=== PATIENT | male | born 1945 | race Caucasian/White ===

== ENCOUNTER 2019-02-07 06:47 | Inpatient (IN) | payer MEDICARE, MEDICAID ==
[~2019-02-07] VITALS: Ht 185.4 cm; Wt 101.2 kg
--- NOTE | 2019-02-07 07:01 | NUR ---
73 Y/O MALE PRESENTS TO ED WITH C/O WEAKNESS. PER REPORT PT WAS FOUND DOWN AND ACTING ABNORMAL. 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 PT WAS FOUND DOWN BY DEBURRER. PT WAS LAST NORMAL AT 10 PM LAST NIGHT. PER EMS CAREGIVE STATED HE IS ABLE TO HAVE NORMAL CONVERSATIONS. PER PT "I FELL LAST NIGHT. I FEEL LIKE CRAP." PT HAS OVBIOUS FACIAL TREMORS. 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 PT PLACED ON CON TPULSE OX, NIBP, APPRENTICE JOCKEY. NO ACUTE DISTRESS NOTED. PT ABLE TO USE RIGHT HAND WITH NO COMPLICATIONS.
--- NOTE | 2019-02-07 07:09 | NUR ---
PT STATES "I DON'T HAVE PAIN."
--- NOTE | 2019-02-07 07:24 | NUR ---
PT TO IMAGING AT THIS TIME
[2019-02-07] MEDS ORDERED: SODIUM CHLORIDE FLUSH 10ML SYR IVF ONE (07:30)
--- NOTE | 2019-02-07 07:40 | NUR ---
PT BACK FROM IMAGING.
[2019-02-07 08:19] LABS: BASOPHILS # (AUTO) 0.03 x10^3/uL (0-0.1); BASOPHILS % (AUTO) 0 % (0-1); EOSINOPHILS # (AUTO) 0.02 x10^3/uL (0-0.4); EOSINOPHILS % (AUTO) 0 % (1-7); LYMPHOCYTES # (AUTO) 0.48 x10^3/uL (1-3.4); LYMPHOCYTES % (AUTO) 5 % (22-44); MD NO; MEAN CORPUSCULAR HEMOGLOBIN 27.9 pg (27.5-34.5); MEAN CORPUSCULAR HGB CONC 32.9 g/dL (33.2-36.2); MEAN CORPUSCULAR VOLUME 84.6 fL (81-97); MEAN PLATELET VOLUME 8.2 fL (7.4-10.4); MONOCYTES # (AUTO) 0.75 x10^3/uL (0.2-0.8); MONOCYTES % (AUTO) 7 % (2-9); NEUTROPHILS % (AUTO) 88 % (42-75); PLATELET COUNT 156 x10^3/uL (130-400); RED BLOOD COUNT 4.92 x10^6/uL (4.38-5.82); RED CELL DISTRIBUTION WIDTH 15.3 % (9.4-14.8)
[2019-02-07 08:23] LABS: ALANINE AMINOTRANSFERASE 23 U/L (12-78); ALBUMIN 3.6 g/dL (3.4-5.0); ANION GAP 5 mmol/L (5-15); CALCIUM 8.8 mg/dL (8.5-10.1); CHLORIDE 108 mmol/L (98-107); CREATININE 1.02 mg/dL (0.7-1.3)
[2019-02-07 08:27] LABS: ALKALINE PHOSPHATASE 110 U/L (45-117); BILIRUBIN,TOTAL 0.7 mg/dL (0.2-1.0); CREATINE KINASE, TOTAL 127 U/L (39-308); TOTAL PROTEIN 7.4 g/dL (6.4-8.2)
[2019-02-07 08:36] LABS: INTERNATIONAL NORMALIZED RATIO 1.23 (0.93-1.1); PROTHROMBIN TIME 12.8 Seconds (9.6-11.5)
--- NOTE | 2019-02-07 08:41 | NUR ---
PT RESTING ON GURNEY. FRIENDS BEDSIDE. NO ACUTE DISTRESS NOTED. NO NEEDS REQUESTED AT THIS TIME.
[2019-02-07 08:56] LABS: MICROSCOPIC INDICATED
--- NOTE | 2019-02-07 09:03 | NUR ---
REPORT STEPHANIE RN
[2019-02-07] MEDS ORDERED: ASPIRIN (09:05)
[2019-02-07] MEDS ORDERED: GLIPIZIDE (09:05)
[2019-02-07] MEDS ORDERED: LISINOPRIL (09:05)
[2019-02-07] MEDS ORDERED: METFORMIN (09:05)
[2019-02-07] MEDS ORDERED: ATORVASTATIN (09:05)
[2019-02-07] MEDS ORDERED: SAXAGLIPTIN (09:05)
--- NOTE | 2019-02-07 09:05 | NUR ---
PER CAREGIVER "I DON'T KNOW THE DOSAGES. THE MEDICS DIDN'T ASK FOR THEM EITHER. HE DOES TAKE ASPIRIN NOW."
--- NOTE | 2019-02-07 09:06 | NUR ---
PER CAREGIVER "HE FELL AROUND 0600. I CALLED THE AMBULANCE IMMEDIATELY." PT RESTING ON GURNEY. NO TREMORS OR CHATTERING OF LEFT FACE NOTED. PT LAUGHING WITH FRIENDS BEDSIDE. NO ACUTE DISTRESS NOTED
--- NOTE | 2019-02-07 09:19 | NUR ---
ASSUMED CARE. LEFT CALF AND THIGH CRAMPS DEVELOPING. ATTEMPTING TO RELIEVE WITH RUBBING TO NO AVAIL. CARETAKERS AT BEDSIDE. AWARE OF PLAN OF CARE. ASSESSMENT AND NEURO EXAM COMPLETED.
[2019-02-07 09:23] LABS: CULTURE INDICATED? NO
--- NOTE | 2019-02-07 09:59 | NUR ---
REPORT TO JEFFREY OSULLIVAN. PT TO BE TRANSPORTED TO ICU WITH TENZIN AND RN IN [facility] ON MONITOR.
[2019-02-07 10:27] VITALS: BP 123/64
[2019-02-07] MEDS ORDERED: THROMBIN 20,000 UNIT VIAL TP ONE (10:42)
[2019-02-07] MEDS ORDERED: BACITRACIN 50,000 UNIT ONE (10:42)
[2019-02-07] MEDS ORDERED: BUPIVACAINE/EPI 0.5% 1:200K ONE (10:42)
[2019-02-07] MEDS ORDERED: MICROFIBRILLAR COLLAGEN 1 GM TP ONE (10:45)
[2019-02-07] MEDS ORDERED: GLUCAGON 1 MG IM PRN (11:30)
[2019-02-07] MEDS ORDERED: DEXTROSE 50%, 50ML SYRINGE IVPush PRN (11:30)
[2019-02-07] MEDS ORDERED: DEXTROSE 4 GM TAB.CHEW PO PRN (11:30)
[2019-02-07] MEDS ORDERED: INSULIN SINGLE DOSE, ER SQ-INSULIN ONE (12:08)
[2019-02-07] MEDS ORDERED: PROPOFOL 10 MG/ML, 20ML ONE ×2 (13:01)
[2019-02-07] MEDS ORDERED: ROCURONIUM 10MG/ML,5ML ONE (13:02)
[2019-02-07] MEDS ORDERED: CEFAZOLIN 1,000 MG ONE (13:02)
[2019-02-07] MEDS ORDERED: EPHEDRINE 50 MG/ML, 1ML ONE (13:02)
[2019-02-07] MEDS ORDERED: GLYCOPYRROLATE 0.4 MG/2 ML, 2ML ONE (13:02)
[2019-02-07] MEDS ORDERED: SUGAMMADEX 200 MG/2 ML IVPush ONE ×2 (13:40)
[2019-02-07] MEDS ORDERED: HYDROmorphone 2 MG/ML, 1ML IVPush PRN (14:00)
[2019-02-07] MEDS ORDERED: MORPHINE SULFATE 4 MG/ML, 1ML IVPush PRN (14:00)
[2019-02-07] MEDS ORDERED: FENTANYL PF 100 MCG/2ML IV PRN (14:00)
[2019-02-07] MEDS ORDERED: MEPERIDINE/PF 25MG/0.5ML IVPush PRN (14:00)
[2019-02-07] MEDS ORDERED: FENTANYL PF 100 MCG/2ML ONE (14:55)
[2019-02-07] MEDS ORDERED: CEFAZOLIN 1,000 MG IM SCH (15:30)
[2019-02-07] MEDS ORDERED: HYDROmorphone 2 MG/ML, 1ML ONE (15:33)
[2019-02-07] MEDS ORDERED: BISACODYL 10 MG SUPP PR PRN (16:00)
[2019-02-07] MEDS: POTASSIUM CHLORIDE 40 MEQ in SODIUM CHLORIDE 0.9% 1,000 ML IV SCH (17:13)
[2019-02-07] MEDS: INSULIN LISPRO 100 UNITS/ML, PEN SQ-INSULIN SCH ×2 (17:13→21:13)
[2019-02-07] MEDS: OXYcodone/APAP 5/325MG TABLET PO PRN ×2 (17:14→19:19)
[2019-02-07] MEDS ORDERED: ONDANSETRON 2MG/ML, 2ML IVPush PRN (20:30)
[2019-02-07] MEDS: SODIUM CHLORIDE FLUSH 10ML SYR IVF SCH (21:03)
[2019-02-07] MEDS: CEFAZOLIN PMX 2GM/50ML 50 ML IVPB SCH (21:04)
[2019-02-07] MEDS: morphine SULFATE 10 MG/ML, 1ML IV PRN (23:19)
[2019-02-08] MEDS: morphine SULFATE 10 MG/ML, 1ML IV PRN ×2 (00:57→08:26)
[2019-02-08 04:00] VITALS: BP 106/46
[2019-02-08] MEDS: POTASSIUM CHLORIDE 40 MEQ in SODIUM CHLORIDE 0.9% 1,000 ML IV SCH (04:34)
[2019-02-08] MEDS: CEFAZOLIN PMX 2GM/50ML 50 ML IVPB SCH ×3 (04:35→20:34)
[2019-02-08 04:47] LABS: ANION GAP 8 mmol/L (5-15); CALCIUM 7.8 mg/dL (8.5-10.1); CHLORIDE 107 mmol/L (98-107)
[2019-02-08 04:48] LABS: CREATININE 0.74 mg/dL (0.7-1.3)
[2019-02-08] MEDS ORDERED: MORPHINE SULFATE 4 MG/ML, 1ML ONE (08:14)
[2019-02-08] MEDS: SENNA/DOCUSATE TABLET PO SCH (09:00)
[2019-02-08] MEDS: INSULIN LISPRO 100 UNITS/ML, PEN SQ-INSULIN SCH ×3 (11:00→20:34)
[2019-02-08] MEDS: SODIUM CHLORIDE FLUSH 10ML SYR IVF SCH ×2 (12:35→20:33)
[2019-02-08] MEDS ORDERED: LEVETIRACETAM 1,000 MG in SODIUM CHLORIDE 0.9% 100 ML IV ONE (13:30)
[2019-02-08] MEDS: SODIUM CHLORIDE 3% 500 ML IV SCH (13:30)
[2019-02-08 20:25] LABS: ANION GAP 7 mmol/L (5-15); CALCIUM 7.9 mg/dL (8.5-10.1); CHLORIDE 109 mmol/L (98-107)
[2019-02-08] MEDS: SODIUM CHLORIDE 0.9% 1,000 ML IV SCH (20:33)
[2019-02-08] MEDS: MORPHINE SULFATE 4 MG/ML, 1ML IV PRN (20:34)
[2019-02-08] MEDS ORDERED: HYDROmorphone/PF 4 MG/ML, 1ML IM PRN (21:00)
[2019-02-08] MEDS: LEVETIRACETAM 500 MG in SODIUM CHLORIDE 0.9% 100 ML IV SCH (22:15)
[2019-02-08] MEDS: OXYcodone/APAP 5/325MG TABLET PO PRN (22:15)
[2019-02-09 02:15] LABS: ANION GAP 5 mmol/L (5-15); CHLORIDE 108 mmol/L (98-107); CREATININE 0.75 mg/dL (0.7-1.3)
[2019-02-09] MEDS: OXYcodone/APAP 5/325MG TABLET PO PRN (05:11)
[2019-02-09] MEDS: CEFAZOLIN PMX 2GM/50ML 50 ML IVPB SCH ×3 (05:12→21:36)
[2019-02-09] MEDS: SODIUM CHLORIDE 0.9% 1,000 ML IV SCH ×2 (05:21→17:00)
[2019-02-09] MEDS: INSULIN LISPRO 100 UNITS/ML, PEN SQ-INSULIN SCH ×4 (07:00→21:39)
[2019-02-09] MEDS: SODIUM CHLORIDE 3% 500 ML IV SCH (08:30)
[2019-02-09 08:34] LABS: BASOPHILS # (AUTO) 0.01 x10^3/uL (0-0.1); BASOPHILS % (AUTO) 0 % (0-1); EOSINOPHILS # (AUTO) 0.01 x10^3/uL (0-0.4); EOSINOPHILS % (AUTO) 0 % (1-7); LYMPHOCYTES # (AUTO) 0.59 x10^3/uL (1-3.4); LYMPHOCYTES % (AUTO) 8 % (22-44); MD NO; MEAN CORPUSCULAR HEMOGLOBIN 27.8 pg (27.5-34.5); MEAN CORPUSCULAR HGB CONC 33.3 g/dL (33.2-36.2); MEAN CORPUSCULAR VOLUME 83.4 fL (81-97); MEAN PLATELET VOLUME 7.8 fL (7.4-10.4); MONOCYTES % (AUTO) 9 % (2-9); NEUTROPHILS # (AUTO) 6.47 x10^3/uL (1.8-6.8); NEUTROPHILS % (AUTO) 83 % (42-75); PLATELET COUNT 127 x10^3/uL (130-400); RED BLOOD COUNT 4.09 x10^6/uL (4.38-5.82); RED CELL DISTRIBUTION WIDTH 14.8 % (9.4-14.8)
[2019-02-09 08:40] LABS: ANION GAP 6 mmol/L (5-15); CALCIUM 7.7 mg/dL (8.5-10.1); CHLORIDE 107 mmol/L (98-107)
[2019-02-09 08:41] LABS: CREATININE 0.64 mg/dL (0.7-1.3)
[2019-02-09] MEDS: SENNA/DOCUSATE TABLET PO SCH (09:00)
[2019-02-09] MEDS: LEVETIRACETAM 500 MG in SODIUM CHLORIDE 0.9% 100 ML IV SCH (09:54)
[2019-02-09] MEDS: SODIUM CHLORIDE FLUSH 10ML SYR IVF SCH ×2 (09:54→21:00)
[2019-02-09] MEDS: MORPHINE SULFATE 4 MG/ML, 1ML IV PRN (12:05)
[2019-02-09 14:58] LABS: ANION GAP 5 mmol/L (5-15); CALCIUM 8.1 mg/dL (8.5-10.1); CHLORIDE 104 mmol/L (98-107)
--- NOTE | 2019-02-09 16:45 | NUR ---
REPAIRER WELDING EQUIPMENT RECOMMENDATIONS: - Pureed diet with thin liquids - Upright at 90 degrees - Check for pocketing - No straws Addendum: 02/09/19 at [address] Amended: Links added.
[2019-02-09] MEDS: HYDROmorphone 2 MG/ML, 1ML IM PRN (19:57)
[2019-02-09] MEDS: LEVETIRACETAM 1,000 MG in SODIUM CHLORIDE 0.9% 100 ML IV SCH (21:36)
[2019-02-09 22:26] LABS: ANION GAP 4 mmol/L (5-15); CALCIUM 7.9 mg/dL (8.5-10.1); CHLORIDE 108 mmol/L (98-107)
[2019-02-09 22:28] LABS: CREATININE 0.77 mg/dL (0.7-1.3)
[2019-02-10 04:45] LABS: ANION GAP 4 mmol/L (5-15); CALCIUM 8.1 mg/dL (8.5-10.1); CHLORIDE 110 mmol/L (98-107); CREATININE 0.65 mg/dL (0.7-1.3)
[2019-02-10] MEDS: CEFAZOLIN PMX 2GM/50ML 50 ML IVPB SCH (05:28)
[2019-02-10] MEDS: SODIUM CHLORIDE 0.9% 1,000 ML IV SCH (05:28)
[2019-02-10] MEDS: MORPHINE SULFATE 4 MG/ML, 1ML IV PRN (06:09)
[2019-02-10 08:07] LABS: ANION GAP 5 mmol/L (5-15); CHLORIDE 107 mmol/L (98-107); CREATININE 0.65 mg/dL (0.7-1.3)
[2019-02-10] MEDS: INSULIN LISPRO 100 UNITS/ML, PEN SQ-INSULIN SCH ×4 (08:17→21:24)
[2019-02-10] MEDS: SODIUM CHLORIDE FLUSH 10ML SYR IVF SCH ×2 (08:18→21:25)
[2019-02-10] MEDS: SENNA/DOCUSATE TABLET PO SCH (09:00)
[2019-02-10] MEDS: LEVETIRACETAM 1,000 MG in SODIUM CHLORIDE 0.9% 100 ML IV SCH ×2 (11:04→22:00)
[2019-02-10] MEDS: CEFAZOLIN 2,000 MG in SODIUM CHLORIDE 0.9% 50 ML IVPB SCH ×2 (13:38→21:23)
[2019-02-10] MEDS: OXYcodone/APAP 5/325MG TABLET PO PRN (16:00)
[2019-02-10] MEDS: LORazepam 2 MG/ML, 1ML IVPush PRN (17:01)
[2019-02-11] MEDS: OXYcodone/APAP 5/325MG TABLET PO PRN (03:32)
[2019-02-11] MEDS: LORazepam 2 MG/ML, 1ML IVPush PRN ×4 (04:23→20:27)
[2019-02-11] MEDS: CEFAZOLIN 2,000 MG in SODIUM CHLORIDE 0.9% 50 ML IVPB SCH (04:43)
[2019-02-11] MEDS: INSULIN LISPRO 100 UNITS/ML, PEN SQ-INSULIN SCH ×4 (07:00→21:32)
[2019-02-11] MEDS: SODIUM CHLORIDE FLUSH 10ML SYR IVF SCH ×2 (09:00→22:02)
[2019-02-11 09:59] LABS: ANION GAP 5 mmol/L (5-15); CALCIUM 8.4 mg/dL (8.5-10.1); CHLORIDE 104 mmol/L (98-107); CREATININE 0.76 mg/dL (0.7-1.3)
[2019-02-11] MEDS: SENNA/DOCUSATE TABLET PO SCH (11:00)
[2019-02-11] MEDS: LEVETIRACETAM 1,000 MG in SODIUM CHLORIDE 0.9% 100 ML IV SCH (11:01)
--- NOTE | 2019-02-11 14:26 | NUR ---
QUALITY CONTROL ENGINEER RECOMMEND: CAROLYNE/ NTL -up at 90 -no straws -only when alert -float meds Addendum: 02/11/19 at [address] Amended: Links added.
[2019-02-11] MEDS: HYDROmorphone 2 MG/ML, 1ML IM PRN ×2 (15:07→20:28)
[2019-02-11] MEDS: LEVETIRACETAM 1,500 MG in SODIUM CHLORIDE 0.9% 100 ML IV SCH (22:01)
[2019-02-12] MEDS: LORazepam 2 MG/ML, 1ML IVPush PRN ×3 (00:38→16:18)
[2019-02-12 04:48] LABS: ALBUMIN 2.6 g/dL (3.4-5.0); ANION GAP 4 mmol/L (5-15); CALCIUM 8.4 mg/dL (8.5-10.1); CHLORIDE 106 mmol/L (98-107)
[2019-02-12 04:52] LABS: ALANINE AMINOTRANSFERASE 15 U/L (12-78); ALKALINE PHOSPHATASE 93 U/L (45-117); BILIRUBIN,TOTAL 0.7 mg/dL (0.2-1.0); CREATINE KINASE, TOTAL 63 U/L (39-308); CREATININE 0.74 mg/dL (0.7-1.3); TOTAL PROTEIN 6.2 g/dL (6.4-8.2)
[2019-02-12 05:57] LABS: MEAN CORPUSCULAR HEMOGLOBIN 28.5 pg (27.5-34.5); MEAN CORPUSCULAR VOLUME 83.8 fL (81-97); MEAN PLATELET VOLUME 8.1 fL (7.4-10.4); PLATELET COUNT 141 x10^3/uL (130-400); RED BLOOD COUNT 3.76 x10^6/uL (4.38-5.82); RED CELL DISTRIBUTION WIDTH 14.7 % (9.4-14.8)
[2019-02-12 05:58] LABS: BASOPHILS # (AUTO) 0.02 x10^3/uL (0-0.1); BASOPHILS % (AUTO) 0 % (0-1); EOSINOPHILS % (AUTO) 2 % (1-7); LYMPHOCYTES % (AUTO) 13 % (22-44); MD SCAN; MONOCYTES # (AUTO) 0.63 x10^3/uL (0.2-0.8); MONOCYTES % (AUTO) 10 % (2-9); NEUTROPHILS # (AUTO) 4.86 x10^3/uL (1.8-6.8); NEUTROPHILS % (AUTO) 76 % (42-75)
[2019-02-12] MEDS: INSULIN LISPRO 100 UNITS/ML, PEN SQ-INSULIN SCH ×4 (07:00→21:53)
[2019-02-12] MEDS: SODIUM CHLORIDE FLUSH 10ML SYR IVF SCH ×2 (07:48→21:44)
[2019-02-12] MEDS: HYDROmorphone 2 MG/ML, 1ML IM PRN ×2 (08:13→18:24)
[2019-02-12] MEDS: SENNA/DOCUSATE TABLET PO SCH (08:16)
[2019-02-12] MEDS: LEVETIRACETAM 1,500 MG in SODIUM CHLORIDE 0.9% 100 ML IV SCH ×2 (08:36→22:29)
[2019-02-12] MEDS ORDERED: VALPROATE SODIUM 100 MG/ML, 5ML IVPush ONE (11:00)
[2019-02-12] MEDS ORDERED: VALPROATE SODIUM 1,000 MG in SODIUM CHLORIDE 0.9% 100 ML IV ONE (11:30)
[2019-02-12] MEDS ORDERED: FENTANYL PF 250 MCG/5ML ONE (13:49)
[2019-02-12] MEDS ORDERED: CEFAZOLIN 1,000 MG ONE ×2 (13:49→15:38)
[2019-02-12] MEDS ORDERED: BUPIVACAINE/EPI 0.5% 1:200K ONE (13:59)
[2019-02-12] MEDS ORDERED: BACITRACIN 50,000 UNIT ONE (13:59)
[2019-02-12] MEDS ORDERED: THROMBIN 20,000 UNIT VIAL TP ONE ×3 (14:02→15:42)
[2019-02-12] MEDS ORDERED: hydrALAzine 20 MG/ML, 1ML ONE (14:06)
[2019-02-12] MEDS ORDERED: EPHEDRINE 50 MG/ML, 1ML ONE (14:06)
[2019-02-12] MEDS ORDERED: PHENYLEPHRINE 10 MG/ML ONE (14:06)
[2019-02-12] MEDS ORDERED: SUGAMMADEX 200 MG/2 ML IVPush ONE (14:06)
[2019-02-12] MEDS ORDERED: BACITRACIN OINT 500U/GM, 15 GM ONE ×2 (15:30→15:32)
[2019-02-12] MEDS ORDERED: PROPOFOL 10 MG/ML, 20ML ONE (15:38)
[2019-02-12] MEDS ORDERED: NEOSTIGMINE 1 MG/ML, 10ML ONE (15:38)
[2019-02-12] MEDS ORDERED: GLYCOPYRROLATE 0.2MG/1ML, 5ML ONE (15:38)
[2019-02-12] MEDS ORDERED: SUCCINYLCHOLINE 20 MG/ML, 10ML ONE (15:38)
[2019-02-12] MEDS ORDERED: ROCURONIUM 10MG/ML,5ML ONE (15:38)
[2019-02-12] MEDS ORDERED: ONDANSETRON 2MG/ML, 2ML ONE (15:38)
[2019-02-12] MEDS ORDERED: DEXAMETHASONE 4 MG/ML, 1ML ONE (15:38)
[2019-02-12] MEDS ORDERED: BUPIVACAINE/PF-EPI 0.5% 1:200K INFIL ONE (15:42)
[2019-02-12] MEDS ORDERED: LORazepam 2 MG/ML, 1ML ONE (16:13)
[2019-02-12] MEDS ORDERED: FENTANYL PF 100 MCG/2ML ONE (16:13)
[2019-02-12] MEDS: FENTANYL PF 100 MCG/2ML IV PRN ×2 (16:15→16:35)
[2019-02-12] MEDS ORDERED: METOPROLOL 1 MG/ML, 5ML IV PRN (16:30)
[2019-02-12] MEDS ORDERED: DIPHENHYDRAMINE 50 MG/ML, 1ML IVPush PRN (16:30)
[2019-02-12] MEDS ORDERED: MEPERIDINE/PF 25MG/0.5ML IVPush PRN (16:30)
[2019-02-12] MEDS ORDERED: HYDROmorphone 2 MG/ML, 1ML IVPush PRN (16:30)
[2019-02-12] MEDS ORDERED: PROMETHAZINE 25 MG/ML, 1ML IV PRN (16:30)
[2019-02-12] MEDS ORDERED: hydrALAzine 20 MG/ML, 1ML IV PRN (16:30)
[2019-02-12] MEDS ORDERED: LABETALOL 5MG/ML, 20ML IV PRN (16:30)
[2019-02-12 17:40] LABS: BASOPHILS # (AUTO) 0.02 x10^3/uL (0-0.1); BASOPHILS % (AUTO) 0 % (0-1); EOSINOPHILS # (AUTO) 0.06 x10^3/uL (0-0.4); EOSINOPHILS % (AUTO) 1 % (1-7); LYMPHOCYTES # (AUTO) 0.64 x10^3/uL (1-3.4); LYMPHOCYTES % (AUTO) 10 % (22-44); MD NO; MEAN CORPUSCULAR HEMOGLOBIN 27.5 pg (27.5-34.5); MEAN CORPUSCULAR HGB CONC 33.1 g/dL (33.2-36.2); MEAN PLATELET VOLUME 7.8 fL (7.4-10.4); MONOCYTES # (AUTO) 0.57 x10^3/uL (0.2-0.8); MONOCYTES % (AUTO) 9 % (2-9); NEUTROPHILS # (AUTO) 5.36 x10^3/uL (1.8-6.8); NEUTROPHILS % (AUTO) 81 % (42-75); PLATELET COUNT 183 x10^3/uL (130-400); RED BLOOD COUNT 4.18 x10^6/uL (4.38-5.82); RED CELL DISTRIBUTION WIDTH 14.5 % (9.4-14.8)
[2019-02-12 17:46] LABS: ALANINE AMINOTRANSFERASE 14 U/L (12-78); ALBUMIN 2.7 g/dL (3.4-5.0); ANION GAP 7 mmol/L (5-15); CALCIUM 8.9 mg/dL (8.5-10.1); CHLORIDE 106 mmol/L (98-107)
[2019-02-12 17:48] LABS: ALKALINE PHOSPHATASE 104 U/L (45-117); BILIRUBIN,TOTAL 0.6 mg/dL (0.2-1.0); TOTAL PROTEIN 6.8 g/dL (6.4-8.2)
[2019-02-12] MEDS: VALPROATE SODIUM 500 MG in DEXTROSE 5% 100 ML IV SCH (18:27)
[2019-02-12] MEDS: CEFAZOLIN 2,000 MG in SODIUM CHLORIDE 0.9% 50 ML IV SCH (21:44)
[2019-02-13] MEDS: OXYcodone/APAP 5/325MG TABLET PO PRN ×4 (00:47→17:30)
[2019-02-13] MEDS: CEFAZOLIN 2,000 MG in SODIUM CHLORIDE 0.9% 50 ML IV SCH ×2 (05:24→17:31)
[2019-02-13 05:28] LABS: BASOPHILS # (AUTO) 0.03 x10^3/uL (0-0.1); BASOPHILS % (AUTO) 1 % (0-1); EOSINOPHILS # (AUTO) 0.03 x10^3/uL (0-0.4); EOSINOPHILS % (AUTO) 1 % (1-7); LYMPHOCYTES # (AUTO) 0.55 x10^3/uL (1-3.4); LYMPHOCYTES % (AUTO) 9 % (22-44); MD NO; MEAN CORPUSCULAR HEMOGLOBIN 27.6 pg (27.5-34.5); MEAN CORPUSCULAR HGB CONC 33.2 g/dL (33.2-36.2); MEAN CORPUSCULAR VOLUME 83.2 fL (81-97); MEAN PLATELET VOLUME 7.7 fL (7.4-10.4); MONOCYTES # (AUTO) 0.53 x10^3/uL (0.2-0.8); MONOCYTES % (AUTO) 9 % (2-9); NEUTROPHILS # (AUTO) 4.78 x10^3/uL (1.8-6.8); NEUTROPHILS % (AUTO) 81 % (42-75); PLATELET COUNT 178 x10^3/uL (130-400); RED BLOOD COUNT 3.69 x10^6/uL (4.38-5.82); RED CELL DISTRIBUTION WIDTH 14.7 % (9.4-14.8)
[2019-02-13 05:29] LABS: CHLORIDE 105 mmol/L (98-107)
[2019-02-13 05:36] LABS: ALANINE AMINOTRANSFERASE 11 U/L (12-78); ALBUMIN 2.4 g/dL (3.4-5.0); ALKALINE PHOSPHATASE 85 U/L (45-117); ANION GAP 5 mmol/L (5-15); BILIRUBIN,TOTAL 0.8 mg/dL (0.2-1.0); CALCIUM 8.1 mg/dL (8.5-10.1); CREATININE 0.61 mg/dL (0.7-1.3)
[2019-02-13] MEDS: LORazepam 2 MG/ML, 1ML IVPush PRN (05:59)
[2019-02-13] MEDS: SENNA/DOCUSATE TABLET PO SCH (09:06)
[2019-02-13] MEDS: INSULIN LISPRO 100 UNITS/ML, PEN SQ-INSULIN SCH ×3 (09:06→20:00)
[2019-02-13] MEDS: SODIUM CHLORIDE FLUSH 10ML SYR IVF SCH ×2 (09:07→20:20)
[2019-02-13] MEDS: VALPROATE SODIUM 500 MG in DEXTROSE 5% 100 ML IV SCH ×2 (09:07→17:36)
[2019-02-13] MEDS: LEVETIRACETAM 1,500 MG in SODIUM CHLORIDE 0.9% 100 ML IV SCH ×2 (10:13→20:20)
[2019-02-13] MEDS ORDERED: CEFAZOLIN 2,000 MG in SODIUM CHLORIDE 0.9% 50 ML IV SCH (17:30)
[2019-02-14] MEDS: hydrALAzine 20 MG/ML, 1ML IV PRN ×2 (00:17→08:46)
[2019-02-14] MEDS: OXYcodone/APAP 5/325MG TABLET PO PRN ×5 (00:17→23:09)
[2019-02-14] MEDS: INSULIN LISPRO 100 UNITS/ML, PEN SQ-INSULIN SCH ×4 (02:00→20:00)
[2019-02-14] MEDS: VALPROATE SODIUM 500 MG in DEXTROSE 5% 100 ML IV SCH ×2 (08:34→16:40)
[2019-02-14] MEDS: SENNA/DOCUSATE TABLET PO SCH (08:46)
[2019-02-14] MEDS: SODIUM CHLORIDE FLUSH 10ML SYR IVF SCH ×2 (08:47→20:55)
[2019-02-14] MEDS ORDERED: METHYLNALTREXONE 12 MG/0.6 ML SQ PRN (09:30)
[2019-02-14 09:54] LABS: CALCIUM 8.7 mg/dL (8.5-10.1); CREATININE 0.45 mg/dL (0.7-1.3)
[2019-02-14 10:06] LABS: ANION GAP 6 mmol/L (5-15); CHLORIDE 104 mmol/L (98-107)
[2019-02-14] MEDS: LEVETIRACETAM 1,500 MG in SODIUM CHLORIDE 0.9% 100 ML IV SCH ×2 (10:16→20:55)
[2019-02-14 10:30] LABS: BASOPHILS # (AUTO) 0.02 x10^3/uL (0-0.1); BASOPHILS % (AUTO) 0 % (0-1); EOSINOPHILS # (AUTO) 0.08 x10^3/uL (0-0.4); EOSINOPHILS % (AUTO) 1 % (1-7); LYMPHOCYTES # (AUTO) 0.52 x10^3/uL (1-3.4); LYMPHOCYTES % (AUTO) 8 % (22-44); MD NO; MEAN CORPUSCULAR HEMOGLOBIN 27.1 pg (27.5-34.5); MEAN CORPUSCULAR HGB CONC 32.4 g/dL (33.2-36.2); MEAN CORPUSCULAR VOLUME 83.7 fL (81-97); MEAN PLATELET VOLUME 7.7 fL (7.4-10.4); MONOCYTES # (AUTO) 0.52 x10^3/uL (0.2-0.8); MONOCYTES % (AUTO) 9 % (2-9); NEUTROPHILS # (AUTO) 5.06 x10^3/uL (1.8-6.8); NEUTROPHILS % (AUTO) 82 % (42-75); PLATELET COUNT 204 x10^3/uL (130-400); RED BLOOD COUNT 4.14 x10^6/uL (4.38-5.82); RED CELL DISTRIBUTION WIDTH 14.8 % (9.4-14.8)
--- NOTE | 2019-02-14 10:34 | NUR ---
TF GOAL: PROMOTE @ 90ML/HR
[2019-02-14 10:38] LABS: ALANINE AMINOTRANSFERASE 10 U/L (12-78); ALBUMIN 2.6 g/dL (3.4-5.0)
[2019-02-14 10:40] LABS: ALKALINE PHOSPHATASE 90 U/L (45-117); BILIRUBIN,TOTAL 0.7 mg/dL (0.2-1.0); TOTAL PROTEIN 6.6 g/dL (6.4-8.2)
[2019-02-15] MEDS: INSULIN LISPRO 100 UNITS/ML, PEN SQ-INSULIN SCH ×4 (02:00→20:52)
[2019-02-15 04:56] LABS: BASOPHILS # (AUTO) 0.03 x10^3/uL (0-0.1); BASOPHILS % (AUTO) 1 % (0-1); EOSINOPHILS # (AUTO) 0.08 x10^3/uL (0-0.4); EOSINOPHILS % (AUTO) 2 % (1-7); LYMPHOCYTES # (AUTO) 0.59 x10^3/uL (1-3.4); LYMPHOCYTES % (AUTO) 12 % (22-44); MD NO; MEAN CORPUSCULAR HGB CONC 33.7 g/dL (33.2-36.2); MEAN CORPUSCULAR VOLUME 83.3 fL (81-97); MONOCYTES # (AUTO) 0.42 x10^3/uL (0.2-0.8); MONOCYTES % (AUTO) 8 % (2-9); NEUTROPHILS # (AUTO) 3.89 x10^3/uL (1.8-6.8); NEUTROPHILS % (AUTO) 78 % (42-75); PLATELET COUNT 222 x10^3/uL (130-400); RED BLOOD COUNT 4.23 x10^6/uL (4.38-5.82); RED CELL DISTRIBUTION WIDTH 14.6 % (9.4-14.8)
[2019-02-15 05:16] LABS: ANION GAP 4 mmol/L (5-15); CALCIUM 8.9 mg/dL (8.5-10.1); CHLORIDE 103 mmol/L (98-107); CREATININE 0.62 mg/dL (0.7-1.3)
[2019-02-15] MEDS: VALPROATE SODIUM 500 MG in DEXTROSE 5% 100 ML IV SCH ×2 (07:52→17:10)
[2019-02-15] MEDS: SODIUM CHLORIDE FLUSH 10ML SYR IVF SCH ×2 (07:53→20:53)
[2019-02-15] MEDS: MAGNESIUM HYDROXIDE 8%, 30ML UDC PO PRN (07:53)
[2019-02-15] MEDS: SENNA/DOCUSATE TABLET PO SCH (07:53)
[2019-02-15] MEDS: OXYcodone/APAP 5/325MG TABLET PO PRN ×3 (08:04→20:49)
[2019-02-15] MEDS: LEVETIRACETAM 1,500 MG in SODIUM CHLORIDE 0.9% 100 ML IV SCH ×2 (09:46→21:14)
[2019-02-16] MEDS: OXYcodone/APAP 5/325MG TABLET PO PRN ×3 (02:29→19:38)
[2019-02-16] MEDS: INSULIN LISPRO 100 UNITS/ML, PEN SQ-INSULIN SCH ×5 (02:30→20:44)
[2019-02-16 04:37] LABS: BASOPHILS # (AUTO) 0.02 x10^3/uL (0-0.1); BASOPHILS % (AUTO) 0 % (0-1); EOSINOPHILS # (AUTO) 0.09 x10^3/uL (0-0.4); EOSINOPHILS % (AUTO) 2 % (1-7); LYMPHOCYTES # (AUTO) 0.63 x10^3/uL (1-3.4); LYMPHOCYTES % (AUTO) 12 % (22-44); MD NO; MEAN CORPUSCULAR HEMOGLOBIN 27.3 pg (27.5-34.5); MEAN CORPUSCULAR HGB CONC 32.7 g/dL (33.2-36.2); MEAN CORPUSCULAR VOLUME 83.5 fL (81-97); MEAN PLATELET VOLUME 7.3 fL (7.4-10.4); MONOCYTES # (AUTO) 0.55 x10^3/uL (0.2-0.8); MONOCYTES % (AUTO) 10 % (2-9); NEUTROPHILS # (AUTO) 4.08 x10^3/uL (1.8-6.8); NEUTROPHILS % (AUTO) 76 % (42-75); PLATELET COUNT 248 x10^3/uL (130-400); RED BLOOD COUNT 4.02 x10^6/uL (4.38-5.82); RED CELL DISTRIBUTION WIDTH 14.6 % (9.4-14.8)
[2019-02-16 04:47] LABS: CHLORIDE 102 mmol/L (98-107)
[2019-02-16 04:54] LABS: ALANINE AMINOTRANSFERASE 14 U/L (12-78); ALBUMIN 2.4 g/dL (3.4-5.0); ALKALINE PHOSPHATASE 90 U/L (45-117); ANION GAP 4 mmol/L (5-15); BILIRUBIN,TOTAL 0.5 mg/dL (0.2-1.0); CALCIUM 8.9 mg/dL (8.5-10.1); CREATININE 0.69 mg/dL (0.7-1.3); TOTAL PROTEIN 6.5 g/dL (6.4-8.2)
[2019-02-16] MEDS: SODIUM CHLORIDE FLUSH 10ML SYR IVF SCH ×2 (08:29→20:44)
[2019-02-16] MEDS: SENNA/DOCUSATE TABLET PO SCH (09:00)
[2019-02-16] MEDS: VALPROATE SODIUM 250 MG in DEXTROSE 5% 100 ML IV SCH ×2 (09:38→20:39)
[2019-02-16] MEDS: LEVETIRACETAM 1,500 MG in SODIUM CHLORIDE 0.9% 100 ML IV SCH ×2 (11:54→21:55)
--- NOTE | 2019-02-16 16:33 | NUR ---
PICKER BOX OPERATOR Recommendations: - PUREE DIET WITH NTL - Upright at 90 degrees - No straws - 1:1 assist for all PO - Alternate bites/sips Addendum: 02/16/19 at [address] Amended: Links added.
[2019-02-17] MEDS: OXYcodone/APAP 5/325MG TABLET PO PRN ×2 (02:52→12:29)
[2019-02-17] MEDS: INSULIN LISPRO 100 UNITS/ML, PEN SQ-INSULIN SCH ×4 (07:00→21:40)
[2019-02-17 08:14] LABS: BASOPHILS # (AUTO) 0.02 x10^3/uL (0-0.1); BASOPHILS % (AUTO) 1 % (0-1); EOSINOPHILS # (AUTO) 0.08 x10^3/uL (0-0.4); EOSINOPHILS % (AUTO) 2 % (1-7); LYMPHOCYTES # (AUTO) 0.75 x10^3/uL (1-3.4); LYMPHOCYTES % (AUTO) 16 % (22-44); MD NO; MEAN CORPUSCULAR HEMOGLOBIN 27.5 pg (27.5-34.5); MEAN CORPUSCULAR HGB CONC 32.9 g/dL (33.2-36.2); MEAN CORPUSCULAR VOLUME 83.7 fL (81-97); MEAN PLATELET VOLUME 6.6 fL (7.4-10.4); MONOCYTES # (AUTO) 0.53 x10^3/uL (0.2-0.8); MONOCYTES % (AUTO) 11 % (2-9); NEUTROPHILS # (AUTO) 3.43 x10^3/uL (1.8-6.8); NEUTROPHILS % (AUTO) 71 % (42-75); PLATELET COUNT 252 x10^3/uL (130-400); RED BLOOD COUNT 3.92 x10^6/uL (4.38-5.82); RED CELL DISTRIBUTION WIDTH 14.9 % (9.4-14.8)
[2019-02-17 08:29] LABS: ANION GAP 3 mmol/L (5-15); CHLORIDE 104 mmol/L (98-107)
[2019-02-17 08:32] LABS: CALCIUM 8.9 mg/dL (8.5-10.1); CREATININE 0.76 mg/dL (0.7-1.3)
[2019-02-17] MEDS: SENNA/DOCUSATE TABLET PO SCH (09:02)
[2019-02-17] MEDS: SODIUM CHLORIDE FLUSH 10ML SYR IVF SCH ×2 (09:05→21:41)
[2019-02-17] MEDS: VALPROATE SODIUM 250 MG in DEXTROSE 5% 100 ML IV SCH ×2 (09:05→21:40)
[2019-02-17] MEDS: LEVETIRACETAM 1,500 MG in SODIUM CHLORIDE 0.9% 100 ML IV SCH ×2 (09:41→22:39)
[2019-02-17 12:11] VITALS: BP 117/65
[2019-02-17 18:54] VITALS: BP 102/56
[2019-02-18 01:01] VITALS: BP 123/73
[2019-02-18 08:10] VITALS: BP 146/81
[2019-02-18] MEDS: SODIUM CHLORIDE FLUSH 10ML SYR IVF SCH ×2 (08:54→21:08)
[2019-02-18] MEDS: OXYcodone/APAP 5/325MG TABLET PO PRN ×2 (08:54→21:09)
[2019-02-18] MEDS: LEVETIRACETAM 1,500 MG in SODIUM CHLORIDE 0.9% 100 ML IV SCH ×2 (08:54→21:23)
[2019-02-18] MEDS: INSULIN LISPRO 100 UNITS/ML, PEN SQ-INSULIN SCH ×4 (08:55→21:16)
[2019-02-18] MEDS: SENNA/DOCUSATE TABLET PO SCH (08:55)
[2019-02-18] MEDS: MAGNESIUM HYDROXIDE 8%, 30ML UDC PO PRN (14:44)
[2019-02-18 14:46] VITALS: BP 115/60
[2019-02-18 20:41] VITALS: BP 153/77
[2019-02-19 02:41] VITALS: BP 106/64
[2019-02-19 05:06] LABS: BASOPHILS # (AUTO) 0.03 x10^3/uL (0-0.1); BASOPHILS % (AUTO) 1 % (0-1); EOSINOPHILS # (AUTO) 0.08 x10^3/uL (0-0.4); EOSINOPHILS % (AUTO) 1 % (1-7); LYMPHOCYTES # (AUTO) 0.84 x10^3/uL (1-3.4); LYMPHOCYTES % (AUTO) 14 % (22-44); MD NO; MEAN CORPUSCULAR HGB CONC 33.8 g/dL (33.2-36.2); MEAN CORPUSCULAR VOLUME 82.8 fL (81-97); MEAN PLATELET VOLUME 7.3 fL (7.4-10.4); MONOCYTES # (AUTO) 0.76 x10^3/uL (0.2-0.8); MONOCYTES % (AUTO) 13 % (2-9); NEUTROPHILS # (AUTO) 4.37 x10^3/uL (1.8-6.8); NEUTROPHILS % (AUTO) 72 % (42-75); PLATELET COUNT 253 x10^3/uL (130-400); RED BLOOD COUNT 4.44 x10^6/uL (4.38-5.82); RED CELL DISTRIBUTION WIDTH 14.5 % (9.4-14.8)
[2019-02-19 05:12] LABS: CHLORIDE 102 mmol/L (98-107)
[2019-02-19 05:20] LABS: ALANINE AMINOTRANSFERASE 49 U/L (12-78); ALKALINE PHOSPHATASE 145 U/L (45-117); ANION GAP 4 mmol/L (5-15); BILIRUBIN,TOTAL 1.1 mg/dL (0.2-1.0); CALCIUM 9.3 mg/dL (8.5-10.1); CREATININE 0.84 mg/dL (0.7-1.3); TOTAL PROTEIN 7.4 g/dL (6.4-8.2)
[2019-02-19 06:44] VITALS: BP 167/89
[2019-02-19] MEDS: INSULIN LISPRO 100 UNITS/ML, PEN SQ-INSULIN SCH ×4 (07:00→21:15)
[2019-02-19] MEDS: SODIUM CHLORIDE FLUSH 10ML SYR IVF SCH ×2 (09:00→20:51)
[2019-02-19] MEDS: SENNA/DOCUSATE TABLET PO SCH (09:22)
[2019-02-19] MEDS: OXYcodone/APAP 5/325MG TABLET PO PRN (10:56)
[2019-02-19] MEDS: LEVETIRACETAM 1,500 MG in SODIUM CHLORIDE 0.9% 100 ML IV SCH ×2 (10:56→20:52)
[2019-02-19 13:01] VITALS: BP 145/78
[2019-02-19 19:03] VITALS: BP 134/74
[2019-02-20 00:42] VITALS: BP 144/82
[2019-02-20] MEDS: OXYcodone/APAP 5/325MG TABLET PO PRN ×2 (03:06→22:46)
[2019-02-20 04:53] LABS: ALANINE AMINOTRANSFERASE 83 U/L (12-78); ANION GAP 6 mmol/L (5-15); CALCIUM 9.1 mg/dL (8.5-10.1); CHLORIDE 102 mmol/L (98-107)
[2019-02-20 04:57] LABS: ALKALINE PHOSPHATASE 176 U/L (45-117); BILIRUBIN,TOTAL 1.2 mg/dL (0.2-1.0); CREATININE 0.72 mg/dL (0.7-1.3); TOTAL PROTEIN 7.3 g/dL (6.4-8.2)
[2019-02-20] MEDS: INSULIN LISPRO 100 UNITS/ML, PEN SQ-INSULIN SCH ×4 (07:00→22:11)
[2019-02-20 07:32] VITALS: BP 135/71
[2019-02-20] MEDS: SODIUM CHLORIDE FLUSH 10ML SYR IVF SCH ×2 (08:52→22:04)
[2019-02-20] MEDS: AMLODIPINE 2.5 MG TABLET PO SCH (08:52)
[2019-02-20] MEDS: SENNA/DOCUSATE TABLET PO SCH (08:52)
[2019-02-20] MEDS: LEVETIRACETAM 1,000 MG in SODIUM CHLORIDE 0.9% 100 ML IV SCH ×2 (12:44→22:05)
[2019-02-20 14:00] VITALS: BP 128/79
[2019-02-20] MEDS ORDERED: LEVETIRACETAM 1,000 MG in SODIUM CHLORIDE 0.9% 100 ML IV SCH (21:00)
[2019-02-20 21:56] VITALS: BP 134/73
[2019-02-21 02:10] VITALS: BP 142/78
[2019-02-21 05:37] LABS: ALANINE AMINOTRANSFERASE 94 U/L (12-78); ANION GAP 4 mmol/L (5-15); CHLORIDE 102 mmol/L (98-107)
[2019-02-21 05:39] LABS: ALKALINE PHOSPHATASE 182 U/L (45-117); BILIRUBIN,TOTAL 0.9 mg/dL (0.2-1.0); CALCIUM 9.4 mg/dL (8.5-10.1); CREATININE 0.95 mg/dL (0.7-1.3); TOTAL PROTEIN 7.5 g/dL (6.4-8.2)
[2019-02-21 06:47] VITALS: BP 137/76
[2019-02-21] MEDS: INSULIN LISPRO 100 UNITS/ML, PEN SQ-INSULIN SCH ×4 (07:33→21:08)
[2019-02-21] MEDS: SODIUM CHLORIDE FLUSH 10ML SYR IVF SCH ×2 (08:27→21:03)
[2019-02-21] MEDS: SENNA/DOCUSATE TABLET PO SCH (08:27)
[2019-02-21] MEDS: AMLODIPINE 2.5 MG TABLET PO SCH (08:27)
[2019-02-21] MEDS: LEVETIRACETAM 1,000 MG in SODIUM CHLORIDE 0.9% 100 ML IV SCH ×2 (09:21→21:03)
[2019-02-21 13:13] VITALS: BP 128/78
[2019-02-21] MEDS: OXYcodone/APAP 5/325MG TABLET PO PRN (13:42)
[2019-02-21 19:09] VITALS: BP 134/81
[2019-02-22 01:31] VITALS: BP 136/78
[2019-02-22] MEDS: OXYcodone/APAP 5/325MG TABLET PO PRN ×2 (04:42→13:26)
[2019-02-22 06:49] LABS: ALBUMIN 3.1 g/dL (3.4-5.0); CALCIUM 9.2 mg/dL (8.5-10.1); CHLORIDE 104 mmol/L (98-107)
[2019-02-22 06:50] VITALS: BP 128/72
[2019-02-22 06:55] LABS: ALANINE AMINOTRANSFERASE 91 U/L (12-78); ALKALINE PHOSPHATASE 188 U/L (45-117); ANION GAP 8 mmol/L (5-15); BILIRUBIN,TOTAL 1.3 mg/dL (0.2-1.0); CREATININE 0.76 mg/dL (0.7-1.3); TOTAL PROTEIN 7.6 g/dL (6.4-8.2)
[2019-02-22] MEDS: SENNA/DOCUSATE TABLET PO SCH (08:34)
[2019-02-22] MEDS: INSULIN LISPRO 100 UNITS/ML, PEN SQ-INSULIN SCH ×4 (08:34→20:24)
[2019-02-22] MEDS: AMLODIPINE 2.5 MG TABLET PO SCH (08:34)
[2019-02-22] MEDS: SODIUM CHLORIDE FLUSH 10ML SYR IVF SCH ×2 (08:34→20:20)
[2019-02-22] MEDS: LEVETIRACETAM 750 MG in SODIUM CHLORIDE 0.9% 100 ML IV SCH ×2 (09:05→20:20)
[2019-02-22 09:06] LABS: BASOPHILS # (AUTO) 0.03 x10^3/uL (0-0.1); BASOPHILS % (AUTO) 1 % (0-1); EOSINOPHILS # (AUTO) 0.07 x10^3/uL (0-0.4); EOSINOPHILS % (AUTO) 1 % (1-7); LYMPHOCYTES # (AUTO) 0.86 x10^3/uL (1-3.4); LYMPHOCYTES % (AUTO) 17 % (22-44); MD NO; MEAN CORPUSCULAR HGB CONC 32.4 g/dL (33.2-36.2); MEAN CORPUSCULAR VOLUME 83.5 fL (81-97); MEAN PLATELET VOLUME 7.9 fL (7.4-10.4); MONOCYTES # (AUTO) 0.72 x10^3/uL (0.2-0.8); MONOCYTES % (AUTO) 14 % (2-9); NEUTROPHILS # (AUTO) 3.37 x10^3/uL (1.8-6.8); NEUTROPHILS % (AUTO) 67 % (42-75); PLATELET COUNT 271 x10^3/uL (130-400); RED BLOOD COUNT 4.92 x10^6/uL (4.38-5.82)
[2019-02-22 13:54] VITALS: BP 128/78
--- NOTE | 2019-02-22 15:46 | NUR ---
REC CHOPPED/THIN; swallow precautions sheet posted in the room Addendum: 02/22/19 at [address] Amended: Links added.
[2019-02-22 20:22] VITALS: BP 122/72
[2019-02-23 01:27] VITALS: BP 119/72
[2019-02-23 05:20] LABS: CHLORIDE 105 mmol/L (98-107)
[2019-02-23 05:24] LABS: ALANINE AMINOTRANSFERASE 82 U/L (12-78); ALBUMIN 3.2 g/dL (3.4-5.0); ALKALINE PHOSPHATASE 192 U/L (45-117); ANION GAP 6 mmol/L (5-15); CALCIUM 9.2 mg/dL (8.5-10.1); CREATININE 0.81 mg/dL (0.7-1.3); TOTAL PROTEIN 7.7 g/dL (6.4-8.2)
[2019-02-23 06:36] VITALS: BP 130/76
[2019-02-23] MEDS: INSULIN LISPRO 100 UNITS/ML, PEN SQ-INSULIN SCH ×2 (08:10→11:00)
[2019-02-23] MEDS: LEVETIRACETAM 750 MG in SODIUM CHLORIDE 0.9% 100 ML IV SCH (09:23)
[2019-02-23] MEDS: SENNA/DOCUSATE TABLET PO SCH (10:24)
[2019-02-23] MEDS: SODIUM CHLORIDE FLUSH 10ML SYR IVF SCH (10:24)
[2019-02-23] MEDS: AMLODIPINE 2.5 MG TABLET PO SCH (10:24)
[2019-02-23] MEDS ORDERED: ACET325C5 PO (11:06)
[2019-02-23] MEDS ORDERED: AMLO2.5T5 PO (11:06)
[2019-02-23] MEDS ORDERED: LEVE750T37 PO (11:06)
[2019-02-23] MEDS ORDERED: INSU100I11 SQ-INSULIN (11:06)
[2019-02-23 13:11] VITALS: BP 135/95
== END 2019-02-23 18:32 | DRG 25 ==
LOC: ED 08:55 → EDIP 08:56 → ED 09:05 → CCU 10:14 → ICU 02-09 06:23 → CCU 02-12 16:28 → ICU 02-13 20:39 → 5SO 02-17 11:50
PROVIDERS: ADMIT Internal Medicine; ATTEND Internal Medicine
PROC: 009400Z Drainage of Intracranial Subdural Space with Drainage Device, Open Approach (ICD-10-PCS; 2019-02-07)
PROC: 00U20JZ Supplement Dura Mater with Synthetic Substitute, Open Approach (ICD-10-PCS; 2019-02-07)
PROC: 0NR00JZ Replacement of Skull with Synthetic Substitute, Open Approach (ICD-10-PCS; 2019-02-12)
PROC: 009400Z Drainage of Intracranial Subdural Space with Drainage Device, Open Approach (ICD-10-PCS; principal; 2019-02-12 13:30)
DX: S06.5X0A Traumatic subdural hemorrhage without loss of consciousness, initial encounter (principal); G93.41 Metabolic encephalopathy; G40.201 Localization-related (focal) (partial) symptomatic epilepsy and epileptic syndromes with complex partial seizures, not intractable, with status epilepticus; I11.9 Hypertensive heart disease without heart failure; I48.2 Chronic atrial fibrillation; E78.5 Hyperlipidemia, unspecified; I45.10 Unspecified right bundle-branch block; R13.10 Dysphagia, unspecified; D63.8 Anemia in other chronic diseases classified elsewhere; R53.81 Other malaise; E11.9 Type 2 diabetes mellitus without complications; E78.00 Pure hypercholesterolemia, unspecified; G93.89 Other specified disorders of brain; K75.9 Inflammatory liver disease, unspecified; W18.39XA Other fall on same level, initial encounter; Y93.89 Activity, other specified; Y92.89 Other specified places as the place of occurrence of the external cause; Y99.8 Other external cause status; Z74.01 Bed confinement status
CPT/HCPCS: 36415; 70450; 71045; 74018; 74230; 76705; 80048; 80053; 80074; 80177; 81001; 82550; 82962; 83735; 84100; 85025; 85610; 85730; 86850; 86900; 87081; 88305; 93005; 95951; C1713; G0378; J0690; J1100; J1170; J1953; J2405; J2704; J2710; J3010; J3480; C1781; J0330; J0360; J1815; J2060; J2270; J2370; J7030

== ENCOUNTER 2019-04-03 03:29 | Inpatient (IN) | payer MEDICAID, MEDICARE, OTHER ==
[~2019-04-03] VITALS: Ht 188 cm; Wt 99.5 kg
[~2019-04-03 03:29] MED LIST: ACET325C5 PO; AMLO2.5T5 PO; ASPIRIN; ATORVASTATIN; GLIPIZIDE; INSU100I11 SQ-INSULIN; LEVE750T37 PO; LISINOPRIL; METFORMIN; SAXAGLIPTIN
--- NOTE | 2019-04-03 03:57 | NUR ---
DARÍO. REPORT RECEIVED FROM EMS. PT TRANSFERED FROM [place]. PT HAD CRANIOTOMY ON 02/07/19. DRAINAGE FROM SURGICAL SITE AND CT SOWED POSSIBLE ABSCESS AT [facility]. PT DENIES ANY PAIN. PT'S AOX4. RESPS EVEN AND UNLABORED. BP/SPO2 MONITORS IN PLACE. CALL LIGHT WITHIN REACH.
[2019-04-03 04:08] LABS: BASOPHILS # (AUTO) 0.02 x10^3/uL (0-0.1); BASOPHILS % (AUTO) 0 % (0-1); EOSINOPHILS # (AUTO) 0.06 x10^3/uL (0-0.4); EOSINOPHILS % (AUTO) 1 % (1-7); LYMPHOCYTES # (AUTO) 0.93 x10^3/uL (1-3.4); LYMPHOCYTES % (AUTO) 19 % (22-44); MD NO; MEAN CORPUSCULAR HGB CONC 33.2 g/dL (33.2-36.2); MEAN CORPUSCULAR VOLUME 84.4 fL (81-97); MEAN PLATELET VOLUME 7.7 fL (7.4-10.4); MONOCYTES % (AUTO) 8 % (2-9); NEUTROPHILS # (AUTO) 3.63 x10^3/uL (1.8-6.8); NEUTROPHILS % (AUTO) 72 % (42-75); PLATELET COUNT 203 x10^3/uL (130-400); RED BLOOD COUNT 4.19 x10^6/uL (4.38-5.82); RED CELL DISTRIBUTION WIDTH 16.1 % (9.4-14.8)
[2019-04-03] MEDS ORDERED: METF500T17 PO (04:12)
[2019-04-03] MEDS ORDERED: ASPI-496 PO (04:18)
[2019-04-03] MEDS ORDERED: ATOR-2 PO (04:18)
[2019-04-03] MEDS ORDERED: BACL20TA PO (04:19)
[2019-04-03 04:20] LABS: ALBUMIN 3.1 g/dL (3.4-5.0); ANION GAP 4 mmol/L (5-15); CALCIUM 8.7 mg/dL (8.5-10.1); CHLORIDE 108 mmol/L (98-107); CREATININE 0.79 mg/dL (0.7-1.3)
[2019-04-03] MEDS ORDERED: CALC-151 PO (04:20)
[2019-04-03] MEDS ORDERED: CARB15DR74 EACH EAR (04:21)
[2019-04-03] MEDS ORDERED: FERR324T5 PO (04:22)
[2019-04-03] MEDS ORDERED: DEXT1DRO6 EACH EAR (04:22)
[2019-04-03] MEDS ORDERED: GLIP5TAB10 PO (04:23)
[2019-04-03] MEDS ORDERED: LISI-170 PO (04:24)
[2019-04-03] MEDS ORDERED: SAXA2.5T PO (04:25)
[2019-04-03] MEDS ORDERED: MULT-658 PO (04:25)
--- NOTE | 2019-04-03 05:09 | NUR ---
PT RESTING IN [facility]. RESPS EVEN AND UNLABORED. BP/SPO2 MONITORS IN PLACE. CALL LIGHT WITHIN REACH.
[2019-04-03] MEDS ORDERED: CEFTRIAXONE PMX 1GM/50ML 50 ML ONE (05:16)
--- NOTE | 2019-04-03 05:24 | NUR ---
ABX INFUSING AT THIS TIME. PT TOLERATED WELL.
[2019-04-03] MEDS ORDERED: METRONIDAZOLE PMX 500MG/100ML 100 ML IV ONE (05:30)
[2019-04-03] MEDS ORDERED: VANCOMYCIN 1,900 MG in SODIUM CHLORIDE 0.9% 250 ML IV ONE (05:30)
[2019-04-03] MEDS ORDERED: VANCOMYCIN PER PHARMACY IV ONE (05:30)
[2019-04-03] MEDS ORDERED: CEFTRIAXONE PMX 1GM/50ML 50 ML IVPB ONE (05:30)
--- NOTE | 2019-04-03 05:30 | NUR ---
REPORT GIVEN TO DENISE OSULLIVAN. ALL QUESTIONS ANSWERED.
[2019-04-03 05:53] VITALS: BP 161/77
[2019-04-03] MEDS ORDERED: PHARMACOKINETIC MONITORING MC PRN (07:00)
[2019-04-03] MEDS ORDERED: ONDANSETRON ODT 4 MG PO PRN (07:00)
[2019-04-03] MEDS ORDERED: DOCUSATE 100 MG CAPSULE PO PRN (07:00)
[2019-04-03] MEDS ORDERED: ACETAMINOPHEN 325 MG TABLET PO PRN (07:00)
[2019-04-03] MEDS ORDERED: POLYETHYLENE GLYCOL 17 GM PACKET PO PRN (07:00)
[2019-04-03] MEDS ORDERED: PROMETHAZINE 25 MG/ML, 1ML IM PRN (07:00)
[2019-04-03] MEDS ORDERED: POTASSIUM CHLORIDE 40 MEQ in SODIUM CHLORIDE 0.9% 500 ML IV ONE (07:00)
[2019-04-03] MEDS: INSULIN LISPRO 100 UNITS/ML, PEN SQ-INSULIN SCH ×4 (07:00→21:00)
[2019-04-03] MEDS ORDERED: OXYcodone IR 5MG TABLET PO PRN (07:00)
[2019-04-03] MEDS ORDERED: BISACODYL 10 MG SUPP PR PRN (07:00)
[2019-04-03] MEDS ORDERED: PHARMACOKINETIC CONSULTATION MC ONE (07:00)
[2019-04-03] MEDS ORDERED: ONDANSETRON 2MG/ML, 2ML IVPush PRN (07:00)
[2019-04-03] MEDS ORDERED: CEFTRIAXONE PMX 1GM/50ML 50 ML IV ONE (07:00)
[2019-04-03] MEDS ORDERED: hydrALAzine 20 MG/ML, 1ML IVPush PRN (07:00)
[2019-04-03] MEDS ORDERED: morphine SULFATE 10 MG/ML, 1ML IVPush PRN (07:00)
[2019-04-03] MEDS ORDERED: VANCOMYCIN PER PHARMACY MC PRN (07:00)
[2019-04-03 07:15] VITALS: BP 147/79
[2019-04-03] MEDS: SODIUM CHLORIDE 0.9% 1,000 ML IV SCH ×2 (07:21→19:57)
[2019-04-03 08:00] LABS: FREE T4 (FREE THYROXINE) 1.31 ng/dL (0.76-1.46); THYROID STIMULATING HORMONE 1.15 mIU/L (0.358-3.740)
[2019-04-03] MEDS: MULTIVITAMIN 1 TABLET PO SCH (08:02)
[2019-04-03] MEDS: FERROUS SULFATE 325 MG TABLET PO SCH ×2 (08:02→22:05)
[2019-04-03] MEDS: LISINOPRIL 10 MG TABLET PO SCH (08:02)
[2019-04-03] MEDS: LEVETIRACETAM 500 MG TABLET PO SCH ×2 (08:02→22:05)
[2019-04-03 08:05] LABS: HEMOGLOBIN A1C 7.3 % (4.2-6.3)
[2019-04-03] MEDS: METRONIDAZOLE PMX 500MG/100ML 100 ML IV SCH ×2 (11:03→18:27)
[2019-04-03 14:00] VITALS: BP 152/76
[2019-04-03 19:31] VITALS: BP 147/82
[2019-04-03] MEDS: ATORVASTATIN 80 MG TABLET PO SCH (22:04)
[2019-04-04 00:49] VITALS: BP 143/75
[2019-04-04] MEDS: VANCOMYCIN 1,900 MG in SODIUM CHLORIDE 0.9% 250 ML IV SCH ×2 (00:56→21:46)
[2019-04-04] MEDS: METRONIDAZOLE PMX 500MG/100ML 100 ML IV SCH ×3 (03:10→20:59)
[2019-04-04] MEDS: CEFTRIAXONE PMX 2GM/50ML 50 ML IV SCH (05:11)
[2019-04-04 05:46] LABS: BASOPHILS # (AUTO) 0.02 x10^3/uL (0-0.1); BASOPHILS % (AUTO) 0 % (0-1); EOSINOPHILS # (AUTO) 0.08 x10^3/uL (0-0.4); EOSINOPHILS % (AUTO) 2 % (1-7); LYMPHOCYTES # (AUTO) 0.96 x10^3/uL (1-3.4); LYMPHOCYTES % (AUTO) 19 % (22-44); MD NO; MEAN CORPUSCULAR HEMOGLOBIN 27.6 pg (27.5-34.5); MEAN CORPUSCULAR HGB CONC 32.9 g/dL (33.2-36.2); MEAN CORPUSCULAR VOLUME 83.8 fL (81-97); MEAN PLATELET VOLUME 8.3 fL (7.4-10.4); MONOCYTES # (AUTO) 0.44 x10^3/uL (0.2-0.8); MONOCYTES % (AUTO) 9 % (2-9); NEUTROPHILS # (AUTO) 3.48 x10^3/uL (1.8-6.8); NEUTROPHILS % (AUTO) 70 % (42-75); PLATELET COUNT 195 x10^3/uL (130-400); RED BLOOD COUNT 4.18 x10^6/uL (4.38-5.82); RED CELL DISTRIBUTION WIDTH 15.5 % (9.4-14.8)
[2019-04-04 05:58] LABS: ALBUMIN 2.8 g/dL (3.4-5.0); CALCIUM 8.4 mg/dL (8.5-10.1); CHLORIDE 108 mmol/L (98-107)
[2019-04-04 06:04] LABS: ALANINE AMINOTRANSFERASE 13 U/L (12-78); ALKALINE PHOSPHATASE 96 U/L (45-117); ANION GAP 5 mmol/L (5-15); BILIRUBIN,TOTAL 0.7 mg/dL (0.2-1.0); CHOL/HDL RATIO 3.5; CHOLESTEROL, TOTAL 118 mg/dL (140-239); HDL CHOL % 29 % (26-37); HDL CHOLESTEROL (DIRECT) 34 mg/dL (40-60); LDL CHOLESTEROL,CALCULATED 71 mg/dL (54-169); LDL/HDL RATIO 2.1 (0.5-3.0); TRIGLYCERIDES 67 mg/dL (50-200); VLDL CHOLESTEROL 13 mg/dL (0-25)
[2019-04-04] MEDS: SODIUM CHLORIDE 0.9% 1,000 ML IV SCH (06:35)
[2019-04-04 07:02] VITALS: BP 149/64
[2019-04-04] MEDS: INSULIN LISPRO 100 UNITS/ML, PEN SQ-INSULIN SCH ×4 (07:12→21:20)
[2019-04-04] MEDS: FERROUS SULFATE 325 MG TABLET PO SCH ×2 (09:02→21:20)
[2019-04-04] MEDS: LISINOPRIL 10 MG TABLET PO SCH (09:02)
[2019-04-04] MEDS: LEVETIRACETAM 500 MG TABLET PO SCH ×2 (09:02→21:20)
[2019-04-04] MEDS: MULTIVITAMIN 1 TABLET PO SCH (09:02)
[2019-04-04 12:36] VITALS: BP 158/79
[2019-04-04] MEDS ORDERED: EPINEPHRINE 1 MG/ML, 1ML ONE (13:10)
[2019-04-04] MEDS ORDERED: BACITRACIN 50,000 UNIT ONE ×2 (13:10→16:52)
[2019-04-04] MEDS ORDERED: THROMBIN 5,000 UNIT VIAL TP ONE (13:10)
[2019-04-04] MEDS ORDERED: BUPIVACAINE/PF 0.5% ONE (13:10)
[2019-04-04] MEDS ORDERED: VANCOMYCIN 1,000 MG ONE (16:41)
[2019-04-04] MEDS ORDERED: PROMETHAZINE 25 MG/ML, 1ML IV PRN (17:00)
[2019-04-04] MEDS ORDERED: OXYcodone 5 MG/5 ML ORAL.SOL UDC PO PRN (17:00)
[2019-04-04] MEDS ORDERED: ALBUTEROL SULFATE 2.5 MG/3 ML NPPB PRN (17:00)
[2019-04-04] MEDS ORDERED: hydrALAzine 20 MG/ML, 1ML IV PRN (17:00)
[2019-04-04] MEDS ORDERED: LABETALOL 5MG/ML, 20ML IV PRN (17:00)
[2019-04-04] MEDS ORDERED: HYDROmorphone 2 MG/ML, 1ML IVPush PRN (17:00)
[2019-04-04] MEDS ORDERED: FENTANYL PF 100 MCG/2ML IV PRN (17:00)
[2019-04-04] MEDS ORDERED: HALOPERIDOL 5 MG/ML IV PRN (17:00)
[2019-04-04] MEDS ORDERED: CEFAZOLIN 1,000 MG ONE (17:02)
[2019-04-04] MEDS ORDERED: GLYCOPYRROLATE 0.2MG/1ML, 5ML ONE (17:02)
[2019-04-04] MEDS ORDERED: DEXAMETHASONE 4 MG/ML, 1ML ONE (17:02)
[2019-04-04] MEDS ORDERED: NEOSTIGMINE 1 MG/ML, 10ML ONE (17:02)
[2019-04-04] MEDS ORDERED: FENTANYL PF 250 MCG/5ML ONE (17:02)
[2019-04-04] MEDS ORDERED: SUGAMMADEX 200 MG/2 ML IVPush ONE (17:02)
[2019-04-04] MEDS ORDERED: ONDANSETRON 2MG/ML, 2ML ONE (17:02)
[2019-04-04] MEDS ORDERED: SUCCINYLCHOLINE 20 MG/ML, 10ML ONE (17:02)
[2019-04-04] MEDS ORDERED: PROPOFOL 10 MG/ML, 20ML ONE (17:02)
[2019-04-04] MEDS ORDERED: ROCURONIUM 10MG/ML,5ML ONE (17:02)
[2019-04-04 19:15] LABS: INTERNATIONAL NORMALIZED RATIO 1.28 (0.93-1.1); PROTHROMBIN TIME 13.3 Seconds (9.6-11.5)
[2019-04-04] MEDS: ATORVASTATIN 80 MG TABLET PO SCH (21:20)
[2019-04-04] MEDS: OXYcodone/APAP 5/325MG TABLET PO PRN (21:50)
[2019-04-05] MEDS: OXYcodone/APAP 5/325MG TABLET PO PRN ×3 (00:02→19:23)
[2019-04-05] MEDS: METRONIDAZOLE PMX 500MG/100ML 100 ML IV SCH ×3 (04:04→19:36)
[2019-04-05] MEDS: CEFTRIAXONE PMX 2GM/50ML 50 ML IV SCH ×2 (05:01→18:03)
[2019-04-05] MEDS: LEVETIRACETAM 500 MG TABLET PO SCH ×2 (08:05→21:15)
[2019-04-05] MEDS: LISINOPRIL 10 MG TABLET PO SCH (08:05)
[2019-04-05] MEDS: MULTIVITAMIN 1 TABLET PO SCH (08:05)
[2019-04-05] MEDS: FERROUS SULFATE 325 MG TABLET PO SCH ×2 (08:05→21:15)
[2019-04-05] MEDS: INSULIN LISPRO 100 UNITS/ML, PEN SQ-INSULIN SCH ×4 (08:10→21:17)
[2019-04-05] MEDS: VANCOMYCIN 1,900 MG in SODIUM CHLORIDE 0.9% 250 ML IV SCH (15:57)
[2019-04-05] MEDS: ATORVASTATIN 80 MG TABLET PO SCH (21:15)
[2019-04-06] MEDS: METRONIDAZOLE PMX 500MG/100ML 100 ML IV SCH ×3 (04:04→20:02)
[2019-04-06 04:45] LABS: BASOPHILS # (AUTO) 0.08 x10^3/uL (0-0.1); BASOPHILS % (AUTO) 1 % (0-1); EOSINOPHILS # (AUTO) 0.11 x10^3/uL (0-0.4); EOSINOPHILS % (AUTO) 2 % (1-7); LYMPHOCYTES # (AUTO) 1.02 x10^3/uL (1-3.4); LYMPHOCYTES % (AUTO) 17 % (22-44); MD NO; MEAN CORPUSCULAR HEMOGLOBIN 27.7 pg (27.5-34.5); MEAN CORPUSCULAR HGB CONC 32.5 g/dL (33.2-36.2); MEAN CORPUSCULAR VOLUME 85.2 fL (81-97); MEAN PLATELET VOLUME 8.1 fL (7.4-10.4); MONOCYTES # (AUTO) 0.45 x10^3/uL (0.2-0.8); MONOCYTES % (AUTO) 8 % (2-9); NEUTROPHILS # (AUTO) 4.29 x10^3/uL (1.8-6.8); NEUTROPHILS % (AUTO) 72 % (42-75); PLATELET COUNT 177 x10^3/uL (130-400); RED BLOOD COUNT 3.94 x10^6/uL (4.38-5.82); RED CELL DISTRIBUTION WIDTH 15.9 % (9.4-14.8)
[2019-04-06 05:00] VITALS: BP 125/56
[2019-04-06 05:04] LABS: ALBUMIN 2.7 g/dL (3.4-5.0); ANION GAP 5 mmol/L (5-15); CALCIUM 8.4 mg/dL (8.5-10.1); CHLORIDE 108 mmol/L (98-107)
[2019-04-06 05:09] LABS: ALANINE AMINOTRANSFERASE 20 U/L (12-78); ALKALINE PHOSPHATASE 91 U/L (45-117); BILIRUBIN,TOTAL 0.3 mg/dL (0.2-1.0); CREATININE 0.83 mg/dL (0.7-1.3); TOTAL PROTEIN 6.4 g/dL (6.4-8.2)
[2019-04-06] MEDS: OXYcodone/APAP 5/325MG TABLET PO PRN ×2 (05:34→21:02)
[2019-04-06] MEDS: CEFTRIAXONE PMX 2GM/50ML 50 ML IV SCH ×2 (05:34→17:35)
[2019-04-06] MEDS: FERROUS SULFATE 325 MG TABLET PO SCH ×2 (08:01→20:12)
[2019-04-06] MEDS: LISINOPRIL 10 MG TABLET PO SCH (08:01)
[2019-04-06] MEDS: MULTIVITAMIN 1 TABLET PO SCH (08:01)
[2019-04-06] MEDS: LEVETIRACETAM 500 MG TABLET PO SCH ×2 (08:01→20:12)
[2019-04-06] MEDS: INSULIN LISPRO 100 UNITS/ML, PEN SQ-INSULIN SCH ×4 (08:14→20:30)
[2019-04-06] MEDS: VANCOMYCIN 1,900 MG in SODIUM CHLORIDE 0.9% 250 ML IV SCH (10:19)
[2019-04-06 11:16] LABS: HCT (SEDRATE) 33.1 % (39.2-51.8)
[2019-04-06 11:26] LABS: ALANINE AMINOTRANSFERASE 21 U/L (12-78); ALBUMIN 2.7 g/dL (3.4-5.0); ANION GAP 5 mmol/L (5-15); CALCIUM 8.5 mg/dL (8.5-10.1); CHLORIDE 107 mmol/L (98-107); CREATININE 0.83 mg/dL (0.7-1.3)
[2019-04-06 11:28] LABS: ALKALINE PHOSPHATASE 90 U/L (45-117); BILIRUBIN,TOTAL 0.3 mg/dL (0.2-1.0); TOTAL PROTEIN 6.3 g/dL (6.4-8.2)
[2019-04-06] MEDS: DAPTOMYCIN 600 MG in SODIUM CHLORIDE 0.9% 100 ML IVPB SCH (12:10)
[2019-04-06] MEDS: INSULIN GLARGINE 100 UNITS/ML, PEN SQ-INSULIN SCH (20:12)
[2019-04-06] MEDS: ATORVASTATIN 80 MG TABLET PO SCH (20:12)
[2019-04-07] MEDS: METRONIDAZOLE PMX 500MG/100ML 100 ML IV SCH ×3 (04:33→20:41)
[2019-04-07 04:58] LABS: ANION GAP 5 mmol/L (5-15); CALCIUM 8.1 mg/dL (8.5-10.1); CHLORIDE 109 mmol/L (98-107); CREATININE 0.71 mg/dL (0.7-1.3)
[2019-04-07] MEDS: CEFTRIAXONE PMX 2GM/50ML 50 ML IV SCH ×2 (05:39→17:37)
[2019-04-07 05:45] VITALS: BP 121/63
[2019-04-07 06:14] LABS: BASOPHILS # (AUTO) 0.02 x10^3/uL (0-0.1); BASOPHILS % (AUTO) 0 % (0-1); EOSINOPHILS # (AUTO) 0.09 x10^3/uL (0-0.4); EOSINOPHILS % (AUTO) 2 % (1-7); LYMPHOCYTES # (AUTO) 0.87 x10^3/uL (1-3.4); LYMPHOCYTES % (AUTO) 18 % (22-44); MD NO; MEAN CORPUSCULAR HEMOGLOBIN 28.2 pg (27.5-34.5); MEAN CORPUSCULAR HGB CONC 33.4 g/dL (33.2-36.2); MEAN CORPUSCULAR VOLUME 84.6 fL (81-97); MEAN PLATELET VOLUME 8.2 fL (7.4-10.4); MONOCYTES # (AUTO) 0.43 x10^3/uL (0.2-0.8); MONOCYTES % (AUTO) 9 % (2-9); NEUTROPHILS # (AUTO) 3.34 x10^3/uL (1.8-6.8); NEUTROPHILS % (AUTO) 70 % (42-75); PLATELET COUNT 149 x10^3/uL (130-400); RED BLOOD COUNT 3.78 x10^6/uL (4.38-5.82)
[2019-04-07] MEDS: INSULIN LISPRO 100 UNITS/ML, PEN SQ-INSULIN SCH ×4 (06:45→20:48)
[2019-04-07] MEDS: MULTIVITAMIN 1 TABLET PO SCH (10:03)
[2019-04-07] MEDS: LEVETIRACETAM 500 MG TABLET PO SCH ×2 (10:03→20:42)
[2019-04-07] MEDS: FERROUS SULFATE 325 MG TABLET PO SCH ×2 (10:03→20:42)
[2019-04-07] MEDS: INSULIN GLARGINE 100 UNITS/ML, PEN SQ-INSULIN SCH ×2 (10:05→20:47)
[2019-04-07] MEDS: DAPTOMYCIN 600 MG in SODIUM CHLORIDE 0.9% 100 ML IVPB SCH (12:25)
[2019-04-07] MEDS ORDERED: SODIUM CHLORIDE 0.9% 1,000 ML IV SCH (12:28)
[2019-04-07 13:19] VITALS: BP 144/78
[2019-04-07 13:42] VITALS: BP 151/90
[2019-04-07 19:32] VITALS: BP 150/78
[2019-04-07] MEDS: ATORVASTATIN 80 MG TABLET PO SCH (20:42)
[2019-04-07] MEDS: OXYcodone/APAP 5/325MG TABLET PO PRN (20:42)
[2019-04-08 01:06] VITALS: BP 160/70
[2019-04-08] MEDS: METRONIDAZOLE PMX 500MG/100ML 100 ML IV SCH ×3 (04:58→20:25)
[2019-04-08] MEDS: CEFTRIAXONE PMX 2GM/50ML 50 ML IV SCH ×2 (06:10→17:44)
[2019-04-08 06:43] VITALS: BP 156/83
[2019-04-08] MEDS: INSULIN LISPRO 100 UNITS/ML, PEN SQ-INSULIN SCH ×4 (07:00→20:27)
[2019-04-08] MEDS: INSULIN GLARGINE 100 UNITS/ML, PEN SQ-INSULIN SCH ×2 (07:49→20:27)
[2019-04-08] MEDS ORDERED: SODIUM CHLORIDE 0.9% 1,000 ML IV SCH (08:00)
[2019-04-08] MEDS: LEVETIRACETAM 500 MG TABLET PO SCH ×2 (08:20→20:25)
[2019-04-08] MEDS: DAPTOMYCIN 600 MG in SODIUM CHLORIDE 0.9% 100 ML IVPB SCH (11:46)
[2019-04-08 14:00] VITALS: BP 166/89
[2019-04-08] MEDS: LISINOPRIL 10 MG TABLET PO SCH (14:10)
[2019-04-08] MEDS ORDERED: FENTANYL PF 100 MCG/2ML ONE (15:26)
[2019-04-08] MEDS ORDERED: MIDAZOLAM 1 MG/ML, 5ML ONE (15:26)
[2019-04-08] MEDS ORDERED: CEFAZOLIN PMX 1GM/50ML 50 ML ONE (15:26)
[2019-04-08] MEDS ORDERED: LIDOCAINE 2%, 20ML ONE (15:26)
[2019-04-08] MEDS ORDERED: CEFAZOLIN 1,000 MG ONE (15:27)
[2019-04-08] MEDS ORDERED: HOLD MEDICATION MC PRN (16:30)
[2019-04-08] MEDS: FERROUS SULFATE 325 MG TABLET PO SCH ×2 (17:01→20:25)
[2019-04-08] MEDS: MULTIVITAMIN 1 TABLET PO SCH (17:01)
[2019-04-08] MEDS: ATORVASTATIN 80 MG TABLET PO SCH (20:25)
[2019-04-08] MEDS: SODIUM CHLORIDE FLUSH 10ML SYR IVF SCH (20:26)
[2019-04-08 20:32] VITALS: BP 148/80
[2019-04-09 01:58] VITALS: BP 131/76
[2019-04-09] MEDS: METRONIDAZOLE PMX 500MG/100ML 100 ML IV SCH ×3 (04:55→21:04)
[2019-04-09] MEDS: CEFTRIAXONE PMX 2GM/50ML 50 ML IV SCH ×2 (06:00→18:47)
[2019-04-09] MEDS: INSULIN LISPRO 100 UNITS/ML, PEN SQ-INSULIN SCH ×4 (07:00→21:00)
[2019-04-09 07:35] VITALS: BP 172/76
[2019-04-09] MEDS: FERROUS SULFATE 325 MG TABLET PO SCH ×2 (09:30→21:04)
[2019-04-09] MEDS: MULTIVITAMIN 1 TABLET PO SCH (09:30)
[2019-04-09] MEDS: LEVETIRACETAM 500 MG TABLET PO SCH ×2 (09:30→21:04)
[2019-04-09] MEDS: LISINOPRIL 10 MG TABLET PO SCH (09:31)
[2019-04-09] MEDS: SODIUM CHLORIDE FLUSH 10ML SYR IVF SCH ×2 (09:31→21:04)
[2019-04-09] MEDS: INSULIN GLARGINE 100 UNITS/ML, PEN SQ-INSULIN SCH ×2 (09:37→21:18)
[2019-04-09 14:00] VITALS: BP 138/59
[2019-04-09 14:54] LABS: CLOSTRIDIUM DIFFICILE ANTIGEN NEGATIVE; CLOSTRIDIUM DIFFICILE TOXIN NEGATIVE (Negative)
[2019-04-09 20:14] VITALS: BP 166/85
[2019-04-09] MEDS: ATORVASTATIN 80 MG TABLET PO SCH (21:04)
[2019-04-09] MEDS: OXYcodone/APAP 5/325MG TABLET PO PRN (23:21)
[2019-04-10 01:21] VITALS: BP 141/75
[2019-04-10] MEDS: METRONIDAZOLE PMX 500MG/100ML 100 ML IV SCH ×2 (04:23→12:16)
[2019-04-10 04:41] LABS: BASOPHILS # (AUTO) 0.02 x10^3/uL (0-0.1); BASOPHILS % (AUTO) 0 % (0-1); EOSINOPHILS # (AUTO) 0.11 x10^3/uL (0-0.4); EOSINOPHILS % (AUTO) 2 % (1-7); LYMPHOCYTES # (AUTO) 0.92 x10^3/uL (1-3.4); LYMPHOCYTES % (AUTO) 17 % (22-44); MD NO; MEAN CORPUSCULAR HEMOGLOBIN 27.7 pg (27.5-34.5); MEAN CORPUSCULAR HGB CONC 32.7 g/dL (33.2-36.2); MEAN CORPUSCULAR VOLUME 84.8 fL (81-97); MONOCYTES # (AUTO) 0.54 x10^3/uL (0.2-0.8); MONOCYTES % (AUTO) 10 % (2-9); NEUTROPHILS # (AUTO) 3.82 x10^3/uL (1.8-6.8); NEUTROPHILS % (AUTO) 71 % (42-75); PLATELET COUNT 169 x10^3/uL (130-400); RED CELL DISTRIBUTION WIDTH 16.6 % (9.4-14.8)
[2019-04-10] MEDS: CEFTRIAXONE PMX 2GM/50ML 50 ML IV SCH ×2 (05:44→18:01)
[2019-04-10] MEDS: INSULIN LISPRO 100 UNITS/ML, PEN SQ-INSULIN SCH ×4 (07:00→21:15)
[2019-04-10 07:45] VITALS: BP 158/88
[2019-04-10] MEDS: FERROUS SULFATE 325 MG TABLET PO SCH ×2 (08:54→21:13)
[2019-04-10] MEDS: LISINOPRIL 10 MG TABLET PO SCH (08:54)
[2019-04-10] MEDS: SODIUM CHLORIDE FLUSH 10ML SYR IVF SCH ×2 (08:54→21:13)
[2019-04-10] MEDS: LEVETIRACETAM 500 MG TABLET PO SCH ×2 (08:54→21:14)
[2019-04-10] MEDS: MULTIVITAMIN 1 TABLET PO SCH (08:54)
[2019-04-10] MEDS: INSULIN GLARGINE 100 UNITS/ML, PEN SQ-INSULIN SCH (08:57)
[2019-04-10] MEDS: LINAGLIPTIN 5 MG TAB PO SCH (12:42)
[2019-04-10 14:00] VITALS: BP 137/82
[2019-04-10 20:34] VITALS: BP 143/86
[2019-04-10] MEDS: metFORMIN 500 MG TABLET PO SCH (21:00)
[2019-04-10] MEDS: ATORVASTATIN 80 MG TABLET PO SCH (21:14)
[2019-04-11 01:42] VITALS: BP 143/84
[2019-04-11 05:03] LABS: ANION GAP 4 mmol/L (5-15); CALCIUM 8.8 mg/dL (8.5-10.1); CHLORIDE 105 mmol/L (98-107); CREATININE 0.66 mg/dL (0.7-1.3)
[2019-04-11] MEDS: CEFTRIAXONE PMX 2GM/50ML 50 ML IV SCH ×2 (05:56→18:40)
[2019-04-11] MEDS: INSULIN LISPRO 100 UNITS/ML, PEN SQ-INSULIN SCH ×4 (07:00→20:52)
[2019-04-11 07:11] VITALS: BP 144/81
[2019-04-11] MEDS: MULTIVITAMIN 1 TABLET PO SCH (08:54)
[2019-04-11] MEDS: LISINOPRIL 10 MG TABLET PO SCH (08:54)
[2019-04-11] MEDS: LEVETIRACETAM 500 MG TABLET PO SCH ×2 (08:54→20:52)
[2019-04-11] MEDS: FERROUS SULFATE 325 MG TABLET PO SCH ×2 (08:54→20:52)
[2019-04-11] MEDS: LINAGLIPTIN 5 MG TAB PO SCH (08:55)
[2019-04-11] MEDS: metFORMIN 500 MG TABLET PO SCH ×2 (08:55→20:52)
[2019-04-11] MEDS: SODIUM CHLORIDE FLUSH 10ML SYR IVF SCH ×2 (08:56→20:53)
[2019-04-11 15:24] VITALS: BP 117/74
[2019-04-11 19:51] VITALS: BP 142/87
[2019-04-11] MEDS: ATORVASTATIN 80 MG TABLET PO SCH (20:52)
[2019-04-12 01:11] VITALS: BP 138/87
[2019-04-12] MEDS: CEFTRIAXONE PMX 2GM/50ML 50 ML IV SCH (05:48)
[2019-04-12 06:59] VITALS: BP 148/89
[2019-04-12] MEDS: INSULIN LISPRO 100 UNITS/ML, PEN SQ-INSULIN SCH ×3 (07:00→16:00)
[2019-04-12] MEDS: SODIUM CHLORIDE FLUSH 10ML SYR IVF SCH (09:00)
[2019-04-12] MEDS: metFORMIN 500 MG TABLET PO SCH (09:15)
[2019-04-12] MEDS: FERROUS SULFATE 325 MG TABLET PO SCH (09:15)
[2019-04-12] MEDS: MULTIVITAMIN 1 TABLET PO SCH (09:16)
[2019-04-12] MEDS: LEVETIRACETAM 500 MG TABLET PO SCH (09:16)
[2019-04-12] MEDS: LISINOPRIL 10 MG TABLET PO SCH (09:16)
[2019-04-12] MEDS: LINAGLIPTIN 5 MG TAB PO SCH (09:16)
[2019-04-12 12:29] VITALS: BP 133/83
[2019-04-12] MEDS ORDERED: LISI-167 PO (13:09)
[2019-04-12] MEDS ORDERED: LEVE500T53 PO (13:09)
[2019-04-12] MEDS ORDERED: METF500T17 PO (13:09)
[2019-04-12] MEDS ORDERED: FERR-51 PO (13:11)
[2019-04-12] MEDS ORDERED: GLIP5TAB10 PO (13:11)
== END 2019-04-12 17:06 | DRG 856 ==
LOC: ED 03:32 → EDIP 05:07 → 4NOR 05:46 → CCU 04-04 18:09 → 5SO 04-07 13:12 → 3NE 04-10 14:36
PROVIDERS: ADMIT Internal Medicine; ATTEND Internal Medicine
PROC: 0ND Head and Facial Bones, Extraction (ICD-10-PCS; 2019-04-04)
PROC: 00930ZZ Drainage of Intracranial Epidural Space, Open Approach (ICD-10-PCS; principal; 2019-04-04 14:30)
PROC: 02HV33Z Insertion of Infusion Device into Superior Vena Cava, Percutaneous Approach (ICD-10-PCS; 2019-04-06)
PROC: B548ZZA Ultrasonography of Superior Vena Cava, Guidance (ICD-10-PCS; 2019-04-06)
PROC: 02H63JZ Insertion of Pacemaker Lead into Right Atrium, Percutaneous Approach (ICD-10-PCS; 2019-04-10)
PROC: 02HK3JZ Insertion of Pacemaker Lead into Right Ventricle, Percutaneous Approach (ICD-10-PCS; 2019-04-10)
PROC: 0JH606Z Insertion of Pacemaker, Dual Chamber into Chest Subcutaneous Tissue and Fascia, Open Approach (ICD-10-PCS; 2019-04-10)
DX: T81.42XA Infection following a procedure, deep incisional surgical site, initial encounter (principal); G06.2 Extradural and subdural abscess, unspecified; I69.354 Hemiplegia and hemiparesis following cerebral infarction affecting left non-dominant side; E44.0 Moderate protein-calorie malnutrition; D68.59 Other primary thrombophilia; I50.30 Unspecified diastolic (congestive) heart failure; M86.8X8 Other osteomyelitis, other site; D63.8 Anemia in other chronic diseases classified elsewhere; I49.5 Sick sinus syndrome; E11.65 Type 2 diabetes mellitus with hyperglycemia; E11.69 Type 2 diabetes mellitus with other specified complication; E53.8 Deficiency of other specified B group vitamins; E55.9 Vitamin D deficiency, unspecified; E66.3 Overweight; Z68.28 Body mass index [BMI] 28.0-28.9, adult; E78.00 Pure hypercholesterolemia, unspecified; E78.5 Hyperlipidemia, unspecified; E87.6 Hypokalemia; I08.3 Combined rheumatic disorders of mitral, aortic and tricuspid valves; F12.90 Cannabis use, unspecified, uncomplicated; F17.210 Nicotine dependence, cigarettes, uncomplicated; G40.909 Epilepsy, unspecified, not intractable, without status epilepticus; I11.0 Hypertensive heart disease with heart failure; I45.10 Unspecified right bundle-branch block; I48.2 Chronic atrial fibrillation; Z79.01 Long term (current) use of anticoagulants; Z91.81 History of falling; Z99.3 Dependence on wheelchair
CPT/HCPCS: 33208; 36415; 99285; J3490; S0020; 36573; 70551; 71045; 80048; 80053; 80061; 80202; 82040; 82962; 83036; 83735; 84100; 84439; 84443; 85025; 85610; 85651; 86140; 86850; 86900; 87040; 87070; 87075; 87081; 87205; 87324; 93005; 96374; 99156; 99157; C1779; C1785; C1892; C8929; G0378; J0171; J0690; J0696; J0878; J1100; J2250; J2405; J2704; J2710; J3010; J3370; J3480; Q9957; C1751; J0330; J1815; J7030; J7040; J7050